=== PATIENT | female | born 1990 | race Caucasian/White ===

== ENCOUNTER 2022-09-19 18:22 | Emergency (ER) | payer BC ==
[2022-09-19] MEDS ORDERED: Sodium Chloride 0.9% 10 ML Syringe FLUSH PRN (18:42)
[2022-09-19] MEDS ORDERED: Sodium Chloride 0.9% 1,000 ML IV STA (18:54)
[2022-09-19] MEDS ORDERED: HYDROmorphone 0.5 MG/0.5 ML Syringe IVPUSH ONE (19:59)
== END 2022-09-19 21:26 | disposition home or self-care (01) ==
LOC: JD.ED 18:22
DX: O20.0 Threatened abortion (principal); Z3A.13 13 weeks gestation of pregnancy
CPT/HCPCS: 36415; 76810; 80053; 81001; 84702; 85025; 86900; 86901; 96361; 96374; 99284; J1170; J3490; J7030

== ENCOUNTER 2023-03-06 01:00 | Inpatient (IN) | payer BC ==
[2023-03-06 05:57] LABS: BASOPHILS ABSOLUTE AUTO 0.02 K/mm3 (0.01-0.08); BASOPHILS PERCENT AUTO 0.2 % (0.1-1.2); EOSINOPHILS ABSOLUTE AUTO 0.18 K/mm3 (0.04-0.36); EOSINOPHILS PERCENT AUTO 1.9 (0.7-5.8); HEMATOCRIT 33.1 % (34.1-44.9); HEMOGLOBIN 10.7 gm/dl (11.2-15.7); IMMATURE GRAN ABSOLUTE AUTO 0.02 K/mm3 (0.00-0.10); IMMATURE GRAN PERCENT AUTO 0.2 % (<=1.0); LYMPHOCYTES ABSOLUTE AUTO 2.56 K/mm3 (1.18-3.74); LYMPHOCYTES PERCENT AUTO 26.9 % (19.3-51.7); MEAN CORPUSCULAR HEMOGLOBIN 26.2 pg (25.6-32.2); MEAN CORPUSCULAR HGB CONC 32.3 g/dl (32.2-35.5); MEAN CORPUSCULAR VOLUME 80.9 fl (79.4-94.8); MEAN PLATELET VOLUME 12.5 fl (9.4-12.3); MONOCYTES ABSOLUTE AUTO 0.61 K/mm3 (0.24-0.36); MONOCYTES PERCENT AUTO 6.4 % (4.7-12.5); NEUTROPHILS ABSOLUTE AUTO 6.14 K/mm3 (1.56-6.13); NEUTROPHILS PERCENT AUTO 64.4 % (34.0-71.1); PLATELET COUNT,PLT 181 K/mm3 (182-369); RED BLOOD CELL COUNT 4.09 M/mm3 (3.98-5.22); WHITE BLOOD CELL COUNT,WBC 9.53 K/mm3 (3.98-10.04)
[2023-03-06] MEDS ORDERED: Lactated Ringers 1,000 ML IV SCH (06:00)
[2023-03-06] MEDS ORDERED: Sodium Chloride 0.9% 10 ML Syringe FLUSH PRN (06:00)
[2023-03-06] MEDS ORDERED: Metoclopramide 10 MG/2 ML SDV IVPUSH ONE ×2 (06:30→14:00)
[2023-03-06] MEDS ORDERED: Citric Acid/Sodium Citrate Solution 30 ML Cup PO ONE (06:30)
[2023-03-06] MEDS ORDERED: Ondansetron 4 MG/2 ML SDV ONE (06:57)
[2023-03-06] MEDS ORDERED: Morphine PF 1 MG/ML Amp ONE (06:57)
[2023-03-06] MEDS ORDERED: ceFAZolin 2 GM Vial ONE (06:57)
[2023-03-06] MEDS ORDERED: Phenylephrine 1% 10 MG/ML SDV ONE (06:57)
[2023-03-06] MEDS ORDERED: Oxytocin 10 Units/1 ML SDV ONE ×2 (06:57→08:17)
[2023-03-06] MEDS ORDERED: Meperidine 50 MG/ML Vial IVPUSH PRN (07:10)
[2023-03-06] MEDS ORDERED: diphenhydrAMINE 50 MG/ML SDV IVPUSH PRN ×2 (07:10→09:39)
[2023-03-06] MEDS ORDERED: fentaNYL 100 MCG/2 ML SDV IVPUSH PRN (07:10)
[2023-03-06] MEDS ORDERED: Oxytocin/Lactated Ringers 10 UNIT/1,000 ML BAG IV SCH (08:00)
[2023-03-06] MEDS ORDERED: Ketorolac 30 MG/ML SDV IVPUSH ONE (09:00)
[2023-03-06] MEDS: Ondansetron 4 MG/2 ML SDV IVPUSH PRN ×2 (09:03→09:04)
[2023-03-06] MEDS ORDERED: Naloxone 0.4 MG/ML SDV IVPUSH PRN (09:39)
[2023-03-06] MEDS ORDERED: Ondansetron 4 MG/2 ML SDV IV PRN (09:39)
[2023-03-06] MEDS ORDERED: ePHEDrine 50 MG/ML SDV IVPUSH PRN (09:39)
[2023-03-06] MEDS ORDERED: Dextrose 5%-Lactated Ringers 1,000 ML IV SCH (09:39)
[2023-03-06] MEDS: Ketorolac 30 MG/ML SDV IVPUSH SCH ×2 (14:12→20:19)
[2023-03-06] MEDS ORDERED: Lactated Ringers 1,000 ML IV ONE (16:41)
[2023-03-07] MEDS: Ketorolac 30 MG/ML SDV IVPUSH SCH (02:35)
[2023-03-07 06:29] LABS: HEMATOCRIT 28.5 % (34.1-44.9); MEAN CORPUSCULAR HEMOGLOBIN 25.6 pg (25.6-32.2); MEAN CORPUSCULAR HGB CONC 30.9 g/dl (32.2-35.5); MEAN CORPUSCULAR VOLUME 82.8 fl (79.4-94.8); MEAN PLATELET VOLUME 11.9 fl (9.4-12.3); PLATELET COUNT,PLT 154 K/mm3 (182-369); RED BLOOD CELL COUNT 3.44 M/mm3 (3.98-5.22); WHITE BLOOD CELL COUNT,WBC 8.41 K/mm3 (3.98-10.04)
[2023-03-07 07:04] LABS: HEMOGLOBIN 8.8 gm/dl (11.2-15.7)
[2023-03-07] MEDS: Acetaminophen/oxyCODONE 325-5 MG Tab PO PRN ×2 (12:06→19:14)
[2023-03-07] MEDS: Docusate Sodium 100 MG Cap PO PRN (12:06)
[2023-03-07] MEDS: Ibuprofen 600 MG Tab PO PRN (22:09)
[2023-03-08] MEDS: Acetaminophen/oxyCODONE 325-5 MG Tab PO PRN ×4 (00:16→21:34)
[2023-03-08] MEDS: Ibuprofen 600 MG Tab PO PRN ×3 (03:18→19:47)
[2023-03-08] MEDS: Docusate Sodium 100 MG Cap PO PRN (07:52)
[2023-03-09] MEDS: Ibuprofen 600 MG Tab PO PRN (00:57)
[2023-03-09] MEDS: Acetaminophen/oxyCODONE 325-5 MG Tab PO PRN (03:40)
[2023-03-09] MEDS ORDERED: Iopamidol 612 MG/ML 30 ML SDV IVPUSH ONE ×3 (08:03)
== END 2023-03-09 10:00 | disposition home or self-care (01) | DRG 540 ==
LOC: JD.OB 01:00
PROVIDERS: ADMIT Obstetrics & Gynecology; ATTEND Obstetrics & Gynecology
PROC: 10D00Z1 Extraction of Products of Conception, Low, Open Approach (ICD-10-PCS; principal; 2023-03-06)
PROC: 10907ZC Drainage of Amniotic Fluid, Therapeutic from Products of Conception, Via Natural or Artificial Opening (ICD-10-PCS; 2023-03-06)
DX: O36.5931 Maternal care for other known or suspected poor fetal growth, third trimester, fetus 1 (principal); O30.043 Twin pregnancy, dichorionic/diamniotic, third trimester; Z3A.37 37 weeks gestation of pregnancy; Z37.2 Twins, both liveborn; O99.214 Obesity complicating childbirth; O99.344 Other mental disorders complicating childbirth; F41.9 Anxiety disorder, unspecified; O99.62 Diseases of the digestive system complicating childbirth; F32.A Depression, unspecified; K21.9 Gastro-esophageal reflux disease without esophagitis; Z86.16 Personal history of COVID-19; Z90.49 Acquired absence of other specified parts of digestive tract
CPT/HCPCS: 36415; 59025; 74178; 74178-26; 85025; 85027; 86592; 86850; 86900; 86901; 94762; A9270-GY; J0690; J1200; J1885; J2274; J2370; J2405; J2590; J2765; J7120; J7121; Q9967

== ENCOUNTER 2023-03-13 12:14 | Inpatient (IN) | payer BC ==
[2023-03-13] MEDS ORDERED: Ondansetron 4 MG/2 ML SDV IVPUSH ONE (12:59)
[2023-03-13] MEDS ORDERED: Lactated Ringers 1,000 ML IV SCH (13:00)
[2023-03-13] MEDS ORDERED: Sodium Chloride 0.9% 10 ML Syringe FLUSH PRN (13:06)
[2023-03-13] MEDS ORDERED: ceFAZolin 1 GM Vial IV ONE (13:06)
[2023-03-13] MEDS ORDERED: Propofol 200 MG/20 ML SDV ONE ×2 (13:13→13:14)
[2023-03-13] MEDS ORDERED: fentaNYL 100 MCG/2 ML SDV ONE ×2 (13:13→14:11)
[2023-03-13] MEDS ORDERED: Bupivacaine 0.5% 30 ML SDV ONE (13:13)
[2023-03-13] MEDS ORDERED: Midazolam 1 MG/ML 2 ML SDV ONE (13:13)
[2023-03-13] MEDS ORDERED: Lidocaine 1% 2 ML ONE (13:14)
[2023-03-13] MEDS ORDERED: Rocuronium 50 MG/5 ML Vial ONE ×2 (13:14)
[2023-03-13 13:37] LABS: BASOPHILS ABSOLUTE AUTO 0.02 K/mm3 (0.01-0.08); BASOPHILS PERCENT AUTO 0.2 % (0.1-1.2); EOSINOPHILS ABSOLUTE AUTO 0.21 K/mm3 (0.04-0.36); EOSINOPHILS PERCENT AUTO 2.4 (0.7-5.8); HEMATOCRIT 32.2 % (34.1-44.9); HEMOGLOBIN 10.2 gm/dl (11.2-15.7); IMMATURE GRAN ABSOLUTE AUTO 0.02 K/mm3 (0.00-0.10); IMMATURE GRAN PERCENT AUTO 0.2 % (<=1.0); LYMPHOCYTES PERCENT AUTO 13.7 % (19.3-51.7); MEAN CORPUSCULAR HGB CONC 31.7 g/dl (32.2-35.5); MEAN CORPUSCULAR VOLUME 81.9 fl (79.4-94.8); MEAN PLATELET VOLUME 9.4 fl (9.4-12.3); MONOCYTES PERCENT AUTO 6.8 % (4.7-12.5); NEUTROPHILS ABSOLUTE AUTO 6.72 K/mm3 (1.56-6.13); NEUTROPHILS PERCENT AUTO 76.7 % (34.0-71.1); PLATELET COUNT,PLT 296 K/mm3 (182-369); RED BLOOD CELL COUNT 3.93 M/mm3 (3.98-5.22); WHITE BLOOD CELL COUNT,WBC 8.77 K/mm3 (3.98-10.04)
[2023-03-13] MEDS ORDERED: Sugammadex Sodium 200 MG/2 ML VIAL ONE (13:37)
[2023-03-13 14:01] LABS: A/G RATIO 0.7 (1-2); ALBUMIN 2.7 g/dl (3.4-5.0); BILIRUBIN TOTAL 0.6 mg/dL (0.2-1.0); BUN/CREATININE RATIO 12.2 (14-18); CALCIUM 8.9 mg/dL (8.5-10.1); CREATININE 0.9 mg/dL (0.55-1.02); EST CRCL DRUG DOSING (CG) 97.94 mL/min; PROTEIN TOTAL,TP 6.5 g/dl (6.4-8.2)
[2023-03-13] MEDS ORDERED: Ondansetron 4 MG/2 ML SDV IVPUSH PRN ×2 (14:01→15:40)
[2023-03-13] MEDS ORDERED: fentaNYL 100 MCG/2 ML SDV IVPUSH PRN (14:01)
[2023-03-13] MEDS ORDERED: HYDROmorphone 0.5 MG/0.5 ML Syringe IVPUSH PRN (14:01)
[2023-03-13] MEDS ORDERED: ceFAZolin 2 GM Vial ONE (14:04)
[2023-03-13] MEDS ORDERED: Ondansetron 4 MG/2 ML SDV ONE (14:04)
[2023-03-13] MEDS ORDERED: Dexamethasone 4 MG/ML 5 ML MDV ONE (14:04)
[2023-03-13] MEDS ORDERED: Ketorolac 30 MG/ML SDV ONE (14:15)
[2023-03-13] MEDS ORDERED: Lactated Ringers 1,000 ML IV ONE (14:30)
[2023-03-13] MEDS ORDERED: Acetaminophen/oxyCODONE 325-5 MG Tab PO PRN (15:40)
[2023-03-13] MEDS: Morphine 2 MG/ML SYRINGE IVPUSH PRN (15:59)
[2023-03-13] MEDS: Acetaminophen/oxyCODONE 325-5 MG Tab PO PRN ×2 (18:02→22:16)
[2023-03-13] MEDS: Ketorolac 30 MG/ML SDV IVPUSH SCH (19:52)
[2023-03-13] MEDS: ceFAZolin 2 GM in Sodium Chloride 0.9% 50 ML IV SCH (19:54)
[2023-03-14] MEDS: ceFAZolin 2 GM in Sodium Chloride 0.9% 50 ML IV SCH ×4 (02:25→20:34)
[2023-03-14] MEDS: Ketorolac 30 MG/ML SDV IVPUSH SCH ×2 (02:26→08:14)
[2023-03-14] MEDS: Acetaminophen/oxyCODONE 325-5 MG Tab PO PRN ×5 (02:27→20:12)
[2023-03-14 06:25] LABS: HEMATOCRIT 29.3 % (34.1-44.9); MEAN CORPUSCULAR HEMOGLOBIN 25.4 pg (25.6-32.2); MEAN CORPUSCULAR HGB CONC 30.7 g/dl (32.2-35.5); MEAN CORPUSCULAR VOLUME 82.5 fl (79.4-94.8); MEAN PLATELET VOLUME 9.8 fl (9.4-12.3); PLATELET COUNT,PLT 290 K/mm3 (182-369); RED BLOOD CELL COUNT 3.55 M/mm3 (3.98-5.22); WHITE BLOOD CELL COUNT,WBC 9.03 K/mm3 (3.98-10.04)
[2023-03-14 06:31] LABS: A/G RATIO 0.7 (1-2); ALBUMIN 2.4 g/dl (3.4-5.0); ANION GAP 11.8 (5-15); BILIRUBIN TOTAL 0.5 mg/dL (0.2-1.0); CALCIUM 8.2 mg/dL (8.5-10.1); EST CRCL DRUG DOSING (CG) 88.15 mL/min; POTASSIUM,K 3.8 mEq/L (3.5-5.1); PROTEIN TOTAL,TP 5.8 g/dl (6.4-8.2)
[2023-03-14] MEDS: Morphine 2 MG/ML SYRINGE IVPUSH PRN ×2 (07:06→16:48)
[2023-03-14] MEDS: Docusate Sodium 100 MG Cap PO SCH ×2 (13:06→20:12)
[2023-03-14] MEDS: Ibuprofen 600 MG Tab PO PRN (21:14)
[2023-03-15] MEDS: Acetaminophen/oxyCODONE 325-5 MG Tab PO PRN ×2 (00:11→05:37)
[2023-03-15] MEDS: Ibuprofen 600 MG Tab PO PRN ×2 (04:02→04:06)
== END 2023-03-15 08:10 | disposition home or self-care (01) | DRG 548 ==
LOC: JD.ED 12:14 → JD.SDS 13:09 → JD.OB 15:01
PROVIDERS: ADMIT Obstetrics & Gynecology; ATTEND Obstetrics & Gynecology
PROC: 0JQ80ZZ Repair Abdomen Subcutaneous Tissue and Fascia, Open Approach (ICD-10-PCS; principal; 2023-03-13)
DX: O90.0 Disruption of cesarean delivery wound (principal); O99.63 Diseases of the digestive system complicating the puerperium; K21.9 Gastro-esophageal reflux disease without esophagitis
CPT/HCPCS: 00752; 36415; 51702; 80053; 85025; 85027; 96361; 96374; 99140; 99284-25; 99285; A9270-GY; J0690; J1100; J1170; J1885; J2250; J2270; J2405; J2704; J3010; J3490; J7120

== ENCOUNTER 2023-09-26 22:57 | Emergency (ER) | payer BC ==
[2023-09-27 00:02] LABS: CORONAVIRUS COVID-19 NAA NEGATIVE (NEGATIVE); INFLUENZA A NAA NEGATIVE (NEGATIVE)
[2023-09-27] MEDS ORDERED: Ondansetron 4 MG/2 ML SDV IVPUSH ONE (00:05)
[2023-09-27] MEDS ORDERED: Sodium Chloride 0.9% 1,000 ML IV SCH (00:15)
[2023-09-27 00:33] LABS: BASOPHILS PERCENT AUTO 0.3 % (0.0-1.0); EOSINOPHILS ABSOLUTE AUTO 0.1 K/mm3 (0.0-0.4); EOSINOPHILS PERCENT AUTO 0.4 % (0.0-6.0); HEMATOCRIT 47.1 % (37.0-47.0); HEMOGLOBIN 15.7 gm/dl (12.0-16.0); IMMATURE GRAN ABSOLUTE AUTO 0.05 K/mm3 (0.00-0.05); IMMATURE GRAN PERCENT AUTO 0.4 % (0.0-0.4); LYMPHOCYTES ABSOLUTE AUTO 1.1 K/mm3 (1.0-4.8); MEAN CORPUSCULAR HEMOGLOBIN 26.9 pg (28.0-32.0); MEAN CORPUSCULAR HGB CONC 33.3 g/dl (32.0-36.0); MEAN CORPUSCULAR VOLUME 80.8 fl (83.0-99.0); MEAN PLATELET VOLUME 9.4 fl (9.4-12.3); MONOCYTES ABSOLUTE AUTO 0.8 K/mm3 (0.0-0.8); MONOCYTES PERCENT AUTO 5.7 % (0.0-8.0); NEUTROPHILS PERCENT AUTO 85.2 % (41.0-71.0); PLATELET COUNT,PLT 241 K/mm3 (150-400); RED BLOOD CELL COUNT 5.83 M/mm3 (4.10-5.30)
[2023-09-27 01:02] LABS: A/G RATIO 1.2 (1-2); ALANINE AMINOTRANSFERASE,ALT 27 U/L (14-59); ALBUMIN 4.4 g/dl (3.4-5.0); ALKALINE PHOSPHATASE 85 U/L (46-116); ANION GAP 21.4 (5-15); ASPARTATE AMNIOTRANSFERASE,AST 18 U/L (15-37); BILIRUBIN TOTAL 0.7 mg/dL (0.2-1.0); BLOOD UREA NITROGEN,BUN 18 mg/dL (7-18); BUN/CREATININE RATIO 16.4 (14-18); C-REACTIVE PROTEIN <0.2 mg/dL (<1.0); CALCIUM 10.2 mg/dL (8.5-10.1); CARBON DIOXIDE,CO2 19 mEq/L (21-32); CHLORIDE,CL 105 mEq/L (98-107); CREATININE 1.1 mg/dL (0.55-1.02); EST CRCL DRUG DOSING (CG) 76.73 mL/min; ESTIMATED GFR 68 mL/min (>60); GLUCOSE RANDOM 141 mg/dL (70-99); LIPASE 17 U/L (16-77); MAGNESIUM 1.7 mg/dL (1.8-2.4); POTASSIUM,K 3.4 mEq/L (3.5-5.1); PROTEIN TOTAL,TP 8.2 g/dl (6.4-8.2); SODIUM,NA 142 mEq/L (136-145)
[2023-09-27 01:06] LABS: HCG QUANTITATIVE < 1.0 mIU/mL
[2023-09-27] MEDS ORDERED: Ketorolac 30 MG/ML SDV IVPUSH ONE (01:13)
[2023-09-27] MEDS ORDERED: Sodium Chloride 0.9% 1,000 ML IV ONE (01:13)
[2023-09-27] MEDS ORDERED: Prochlorperazine 10 MG/2 ML SDV IVPUSH ONE (01:13)
[2023-09-27] MEDS ORDERED: Loperamide 2 MG Cap PO ONE (02:12)
== END 2023-09-27 03:35 | disposition home or self-care (01) ==
LOC: JD.ED 22:57
DX: A08.4 Viral intestinal infection, unspecified (principal); Z20.822 Contact with and (suspected) exposure to COVID-19; Z91.018 Allergy to other foods; Z86.16 Personal history of COVID-19
CPT/HCPCS: 0240U; 36415; 80053; 83690; 83735; 84702; 85025; 86140; 96361; 96374; 96375; 99284; A9270; J0780; J1885; J7030